=== PATIENT | female | born 1960 | race Caucasian/White ===

== ENCOUNTER → 2016-11-05 | Outpatient (CLI) | payer OTHER ==
[2016-07-12 11:58] VITALS: BP 98/50
--- NOTE | 2016-11-05 16:21 | VAS ---
HISTORY: Dizziness, syncope Study: Bilateral Carotid Ultrasound Comparison: None Technique: Multiple garcia scale and color flow Doppler images of the right and left carotid arterial system were obtained. The vertebral arterial system was evaluated as well. Findings: Normal color flow Doppler is seen throughout the right and left carotid arterial system. There is n o significant plaque present at the bilateral carotid bifurcations. Peak systolic velocity in the ri ght ICA is 73 cm/sec. Peak systolic velocity in the left ICA is 106 cm/sec. The right ICA/CCA ratio is 1.09. The left ICA/CCA ratio is 1.41. The right and left vertebral arteries demonstrate antegrade flow. IMPRESSION: 1. No hemodynamically significant stenosis identified. 2. Normal antegrade flow in the vertebral arteries. Reported By:
== END ==
LOC: RAD 15:03
PROVIDERS: ATTEND Nurse Practitioner Family
DX: R42 Dizziness and giddiness (principal); R55 Syncope and collapse
CPT/HCPCS: 93880